=== PATIENT | male | born 1965 | race Caucasian/White ===

== ENCOUNTER 2016-06-30 14:55 | Emergency (ER) | payer SELFPAY ==
[~2016-06-30] VITALS: Ht 175.3 cm; Wt 85.3 kg
--- NOTE | 2016-06-30 16:20 | NUR ---
PT AMBULATORY W/ STEADY GAIT. C/O ABDOMINAL DISCOMFORT. N/V/D X 3 DAYS. PT CAME IN W/ DAUGHTER W/ THE SAME SYMPTOMS. 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 AWAITING MD VANG.
--- NOTE | 2016-06-30 16:26 | NUR ---
DR MACIEL AT BEDSIDE FOR EVAL.
--- NOTE | 2016-06-30 16:34 | NUR ---
IV LINE STARTED BLOOD DRAWN AND SENT TO LAB.
[2016-06-30 16:44] LABS: BASOPHILS % (AUTO) 0.5 % (0.0-2.0); EOSINOPHILS # (AUTO) 0.2 /CMM (0.0-0.7); EOSINOPHILS % (AUTO) 2.4 % (0.0-6.0); HEMATOCRIT 44 % (39-51); HEMOGLOBIN 14.7 g/dL (13.5-17.5); LYMPHOCYTES # (AUTO) 2.3 /CMM (0.8-4.8); LYMPHOCYTES % (AUTO) 32.2 % (20.0-44.0); MEAN CORPUSCULAR HEMOGLOBIN 31 PG (26.0-33.0); MEAN CORPUSCULAR HGB CONC 34 g/dl (31.0-36.0); MEAN CORPUSCULAR VOLUME 94 fL (80-96); MONOCYTES # (AUTO) 0.7 /CMM (0.1-1.30); MONOCYTES % (AUTO) 9.6 % (2.0-12.0); NEUTROPHILS # (AUTO) 3.9 /CMM (1.8-8.9); NEUTROPHILS % (AUTO) 55.3 % (43.0-81.0); PLATELET COUNT (AUTO) 178 /CMM (150-450); RDW COEFFICIENT OF VARIATION 12.7 (11.5-15.0); RED BLOOD CELL COUNT(AUTO) 4.68 MIL/uL (4.5-6.0); WHITE BLOOD COUNT (AUTO) 7.1 K/uL (4.3-11.0)
[2016-06-30] MEDS ORDERED: IV NS 0.9% 1,000 ML ONE (16:45)
[2016-06-30] MEDS ORDERED: IV SET PRIMARY 1 EA INFUS.SET MC ONE (16:45)
[2016-06-30 16:59] LABS: BILIRUBIN,DIRECT 0.1 mg/dL (0.0-0.2); BILIRUBIN,TOTAL 0.3 mg/dL (0.2-1.0); CALCIUM, SERUM 8.5 mg/dL (8.5-10.1); TOTAL PROTEIN, SERUM 7.7 g/dL (6.4-8.2)
[2016-06-30] MEDS ORDERED: IV NS 0.9% 1,000 ML BAG IV ONE (17:00)
--- NOTE | 2016-06-30 18:05 | NUR ---
Note grupo in EDM - 06/30/16 at 1805 by VILLA Patient discharged to home in stable condition. Written and verbal after care instructions given. Patient verbalizes understanding of instruction.IV removed. Catheter intact and site benign. Pressure and 4x4 applied to site. No bleeding noted.
[2016-06-30 18:06] VITALS: BP 121/77
== END 2016-06-30 18:07 | disposition home or self-care (01) ==
LOC: ER 14:57
DX: K52.9 Noninfective gastroenteritis and colitis, unspecified (principal); R19.7 Diarrhea, unspecified; I10 Essential (primary) hypertension
CPT/HCPCS: 36415; 80048; 80076; 83690; 85025; 99284; A4606; J7030; Z7610

== ENCOUNTER 2017-05-24 18:55 | Emergency (ER) | payer SELFPAY ==
[~2017-05-24] VITALS: Ht 172.7 cm; Wt 81.6 kg
[2017-05-24 19:21] VITALS: BP 141/83
== END 2017-05-24 22:00 | disposition home or self-care (01) ==
LOC: ER 18:57
DX: B97.89 Other viral agents as the cause of diseases classified elsewhere (principal)
CPT/HCPCS: 71045-TC; A4606; Z7610